=== PATIENT | female | born 1950 | race Caucasian/White ===

== ENCOUNTER 2019-01-12 09:29 | Inpatient (IN) ==
[2019-01-12] MEDS ORDERED: *HR* FentaNYL (PF) 100 MCG/2 ML VIAL ONE ×2 (09:47→12:55)
[2019-01-12] MEDS ORDERED: *HR* Propofol 200 MG/20 ML VIAL IVP ONE (09:47)
[2019-01-12] MEDS ORDERED: Ondansetron 4 MG/2 ML VIAL ONE (09:48)
[2019-01-12] MEDS ORDERED: Lidocaine -MPF 2% 2 ML VIAL ONE (09:48)
[2019-01-12] MEDS ORDERED: Dexamethasone 4 MG/ML VIAL ONE (09:48)
[2019-01-12] MEDS ORDERED: CeFAZolin Syr 2,000MG/20 ML 2,000 MG/20 ML SYRINGE IVPB ONE (10:05)
[2019-01-12] MEDS ORDERED: Ringers Solution, Lactated 1,000 ML IVC SCH (10:15)
[2019-01-12] MEDS ORDERED: Acetaminophen IV 1,000 MG/100 ML INFUS..BTL IVPB ONE (10:26)
[2019-01-12] MEDS ORDERED: Albuterol 2.5 MG/3 ML NEBULIZER IH ONE (10:26)
[2019-01-12] MEDS ORDERED: Famotidine 20 MG/2 ML VIAL IVP ONE (10:26)
[2019-01-12] MEDS ORDERED: *HR* Labetalol 20 MG/4 ML SYRINGE IVP PRN (10:29)
[2019-01-12] MEDS ORDERED: *HR* OxyCODONE Immed Rel 5 MG TABLET PO PRN (10:29)
[2019-01-12] MEDS ORDERED: Albuterol 2.5 MG/3 ML NEBULIZER IH PRN (10:29)
[2019-01-12] MEDS ORDERED: *HR* Promethazine 25 MG/ML VIAL IVP PRN (10:29)
[2019-01-12] MEDS ORDERED: Ondansetron 4 MG/2 ML VIAL IVP ONE (10:29)
[2019-01-12] MEDS ORDERED: Lidocaine Jelly 6ml 1 APPL/6 ML JEL.PF.APP ONE (11:38)
[2019-01-12] MEDS ORDERED: Ketorolac 30 MG/ML VIAL ONE (11:49)
[2019-01-12] MEDS ORDERED: Neostigmine Methylsulfate 3 MG/3 ML SYRINGE ONE (12:55)
[2019-01-12] MEDS: *HR* HYDROmorphone (PF) 1 MG/ML SYRINGE IVP PRN ×2 (14:11→14:18)
[2019-01-12] MEDS ORDERED: Naloxone 0.4 MG/ML INJ IVP PRN (15:29)
[2019-01-12] MEDS: *HR* Heparin 5,000 UNIT/ML VIAL SQ SCH ×2 (16:14→20:29)
[2019-01-12] MEDS: Gabapentin 300 MG CAPSULE PO SCH ×2 (16:14→20:28)
[2019-01-12] MEDS: 0.9 % Sodium Chloride 1,000 ML IVC SCH (16:15)
[2019-01-12] MEDS: Ipratropium/Albuterol Neb 3 ML IH SCH ×3 (16:22→23:12)
[2019-01-12] MEDS: Ketorolac 15 MG/ML VIAL IVP SCH ×2 (17:26→23:27)
[2019-01-12] MEDS: *HR* FentaNYL PATCH 12 MCG PATCH TD SCH (18:52)
[2019-01-12] MEDS: *HR* HYDROcodone/Acet 5/325 mg TABLET PO PRN (18:56)
[2019-01-12] MEDS: Sennosides/Docusate Sodium TABLET PO SCH (20:29)
[2019-01-13] MEDS: Ipratropium/Albuterol Neb 3 ML IH SCH ×6 (03:21→23:53)
[2019-01-13] MEDS: *HR* HYDROcodone/Acet 5/325 mg TABLET PO PRN ×2 (03:45→15:42)
[2019-01-13 04:43] LABS: Hematocrit 35.5 % (35.3-44.9); Hemoglobin 11.5 g/dL (11.5-15.4); Mean Corpuscular HGB Conc 32.4 g/dL (31.6-35.5); Mean Corpuscular Hemoglobin 28.7 pg (28.0-33.3); Mean Corpuscular Volume 88.5 fL (83.0-100.0); Mean Platelet Volume 9.7 fL (9.4-12.4); Platelet Count 176 K/mcL (140-400); Red Blood Count 4.01 M/mcL (3.82-4.97); Red Cell Distribution Width 13.4 % (11.5-14.5)
[2019-01-13 05:02] LABS: Calcium 9.3 mg/dL (8.6-10.3); Magnesium 1.8 mg/dL (1.6-2.6); Potassium 4.3 mEq/L (3.5-5.1)
[2019-01-13] MEDS: 0.9 % Sodium Chloride 1,000 ML IVC SCH (05:35)
[2019-01-13] MEDS: Ketorolac 15 MG/ML VIAL IVP SCH ×4 (06:01→22:51)
[2019-01-13] MEDS: *HR* Heparin 5,000 UNIT/ML VIAL SQ SCH ×3 (06:01→21:17)
[2019-01-13] MEDS: Gabapentin 300 MG CAPSULE PO SCH ×3 (08:38→21:17)
[2019-01-13] MEDS: Sennosides/Docusate Sodium TABLET PO SCH ×2 (08:40→21:17)
[2019-01-13] MEDS: amLODIPine 5 MG TABLET PO SCH (08:40)
[2019-01-13] MEDS ORDERED: Iron Sucrose Complex 400 MG in 0.9 % Sodium Chloride 250 ML IVPB ONE (11:27)
[2019-01-13] MEDS: Lisinopril 20 MG TABLET PO SCH ×2 (11:49→14:47)
[2019-01-13] MEDS: Ondansetron 4 MG/2 ML VIAL IVP PRN (17:31)
[2019-01-13] MEDS: Morphine Sulfate 2 MG/ML SYRINGE IVP PRN (17:45)
[2019-01-14] MEDS: Morphine Sulfate 2 MG/ML SYRINGE IVP PRN ×3 (03:44→19:36)
[2019-01-14] MEDS: Ondansetron 4 MG/2 ML VIAL IVP PRN ×2 (03:44→10:21)
[2019-01-14] MEDS: Ipratropium/Albuterol Neb 3 ML IH SCH ×5 (04:14→20:28)
[2019-01-14] MEDS: Ketorolac 15 MG/ML VIAL IVP SCH ×4 (05:26→23:08)
[2019-01-14] MEDS: *HR* Heparin 5,000 UNIT/ML VIAL SQ SCH ×3 (05:27→21:06)
[2019-01-14] MEDS: Gabapentin 300 MG CAPSULE PO SCH ×3 (07:43→20:36)
[2019-01-14] MEDS: Sennosides/Docusate Sodium TABLET PO SCH ×2 (07:43→20:36)
[2019-01-14] MEDS: amLODIPine 5 MG TABLET PO SCH (08:16)
[2019-01-14] MEDS: *HR* HYDROcodone/Acet 5/325 mg TABLET PO PRN ×2 (10:21→20:35)
[2019-01-14] MEDS: Lisinopril 20 MG TABLET PO SCH (20:36)
[2019-01-15] MEDS: Ipratropium/Albuterol Neb 3 ML IH SCH ×7 (00:05→23:55)
[2019-01-15] MEDS: Morphine Sulfate 2 MG/ML SYRINGE IVP PRN ×2 (03:20→08:43)
[2019-01-15] MEDS: *HR* Heparin 5,000 UNIT/ML VIAL SQ SCH ×3 (05:32→21:07)
[2019-01-15] MEDS: Ketorolac 15 MG/ML VIAL IVP SCH ×4 (05:32→23:47)
[2019-01-15] MEDS: Gabapentin 300 MG CAPSULE PO SCH ×3 (08:42→21:07)
[2019-01-15] MEDS: amLODIPine 5 MG TABLET PO SCH (08:43)
[2019-01-15] MEDS: Sennosides/Docusate Sodium TABLET PO SCH ×2 (08:43→21:07)
[2019-01-15] MEDS: *HR* OxyCODONE/APAP 5/325 TABLET PO PRN ×2 (12:58→19:44)
[2019-01-15] MEDS: *HR* FentaNYL PATCH 12 MCG PATCH TD SCH (15:17)
[2019-01-15] MEDS: Ondansetron 4 MG/2 ML VIAL IVP PRN (19:44)
[2019-01-15] MEDS ORDERED: *HR* LORazepam 2 MG/ML VIAL IVP ONE (20:58)
[2019-01-15] MEDS: Lisinopril 20 MG TABLET PO SCH (21:07)
[2019-01-16] MEDS: *HR* OxyCODONE/APAP 5/325 TABLET PO PRN (01:28)
[2019-01-16] MEDS: Ipratropium/Albuterol Neb 3 ML IH SCH ×4 (04:02→15:35)
[2019-01-16] MEDS: Ketorolac 15 MG/ML VIAL IVP SCH ×2 (05:47→12:52)
[2019-01-16] MEDS: *HR* Heparin 5,000 UNIT/ML VIAL SQ SCH (05:47)
[2019-01-16] MEDS: Sennosides/Docusate Sodium TABLET PO SCH (09:37)
[2019-01-16] MEDS: amLODIPine 5 MG TABLET PO SCH (09:38)
[2019-01-16] MEDS: Gabapentin 300 MG CAPSULE PO SCH (09:42)
[2019-01-16 16:08] VITALS: BP 124/66
== END 2019-01-16 13:45 | disposition home or self-care (01) | DRG 164 ==
LOC: SAMDAY 09:29 → ICNU 15:22
PROVIDERS: ADMIT Thoracic Surgery (Cardiothoracic Vascular Surgery); ATTEND Thoracic Surgery (Cardiothoracic Vascular Surgery)